=== PATIENT | female | born 1990 | race American Indian/Alaskan Native ===

== ENCOUNTER 2019-04-13 14:07 | Outpatient (CLI) | payer MEDICAID ==
[2019-04-13] MEDS ORDERED: LACTATED RINGERS 500 ML IV ONE (17:02)
[2019-04-13] MEDS ORDERED: VISTARIL PO ONE (17:03)
== END 2019-04-13 17:44 | disposition home or self-care (01) ==
LOC: TRG 14:07
PROVIDERS: ATTEND Obstetrics & Gynecology
DX: O47.02 False labor before 37 completed weeks of gestation, second trimester (principal); Z3A.26 26 weeks gestation of pregnancy
CPT/HCPCS: Q0177

== ENCOUNTER 2019-06-04 17:54 | Outpatient (CLI) | payer MEDICAID ==
[2019-06-04] MEDS ORDERED: LACTATED RINGERS 500 ML IV ONE (18:19)
[2019-06-04 19:03] LABS: Bacteria,Urine 1+ /HPF (Negative); Bilirubin,Urine NEG (Negative); Blood,Urine NEG (Negative); Color,Urine Yellow (Yellow); Protein,Urine <15 mg/dL mg/dL (Negative)
[2019-06-04 20:12] VITALS: BP 102/63
== END 2019-06-04 20:32 | disposition home or self-care (01) ==
LOC: TRG 17:54
PROVIDERS: ATTEND Obstetrics & Gynecology
DX: O26.893 Other specified pregnancy related conditions, third trimester (principal); R10.9 Unspecified abdominal pain; O47.03 False labor before 37 completed weeks of gestation, third trimester; Z3A.36 36 weeks gestation of pregnancy
CPT/HCPCS: 81001; J7120; 96360

== ENCOUNTER 2019-06-22 05:37 | Inpatient (IN) | payer MEDICAID ==
--- NOTE | 2019-06-21 13:29 | History and Physical Report ---
History of Present Illness Date of examination: 06/19/19 History of present illness: Patient admitted for repeat section. Patient informed the risks of the surgery include bleeding possibly bleeding heavy enough to require blood transfusion, infection possible damage to bowel bladder ureter. Patient understands that due to her previous surgery she is an increased risks of adjacent organ damage. Patient's questions answered. Patient understands and desires to proceed. Menstrual History Regularity: regular Menses every: 28 days Duration: 4 LMP: 09/30/2018 LMP reliability: unknown LMP character: normal test type: urine test Date: 11/11/2018 BC at conception: none Planned ? no Past History : 5 Term Births: 3 Premature Births: 0 Living Children: 3 Para: 1 Mult. Births: 0 Prev : 3 Aborta: 1 Elect. Ab: 1 Spont. Ab: 0 Ectopics: 0 # 1 Delivery date: 10/09/2009 Weeks Gestation: 10 Delivery type: EAB Comments: d&c # 2 Delivery date: 08/15/2010 Weeks Gestation: 39 labor: no Delivery type: Anesthesia type: spinal Delivery location: [facility] Sex: Male weight: 9-6 Name: José Manuel Comments: Scheduled "might be too big" # 3 Delivery date: 02/06/2013 Weeks Gestation: 39 Delivery type: Anesthesia type: spinal Delivery location: [facility] Infant Sex: Female weight: 7#9 # 4 Delivery date: 12/06/2015 Weeks Gestation: 39 Delivery type: Anesthesia type: spinal Delivery location: [facility] Sex: Female weight: 8#11 Past Medical History: Negative Past Medical History Past Surgical History: C/S X 3 D&C Past Medical History Surgery (Non-breastfeeding peer counselor): D&C Abnormal PAP: negative DELON Exposure: negative Infertility: negative Uterine Anomaly: negative Uterine Surgery (not C/S): negative Other Gynecologic Problems: negative Family Hx: Family History Breast Cancer Family History of Diabetes Family History of Hypertension No Family History of Cervical Cancer No Family History of Colon Cancer Family History of Ovarvian Cancer No Family History of DVT/PE on OCP Social Hx: Patient is single lives with children [employer] Denies etoh, drug, tobacco Infection History HIV Risk Eval: low risk Hepatitis B Risk Eval: low risk Personal hx. of genital herpes: yes Partner hx. of genital herpes: no Rash, Viral, or Febrile illness since last LMP? 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 Genetic History Congenital Heart Defect: Mom: no Dad: no Yoni Disease: Mom: no Dad: no Thalassemia Mom: no Dad: no Neural Tube Defect Mom: no Dad: no Down's Syndrome Mom: no Dad: no Keegan-Sachs Mom: no Dad: no Sickle Cell Disease/Trait Mom: no Dad: no Hemophilia Mom: no Dad: no Muscular Dystrophy Mom: no Dad: no Cystic Fibrosis Mom: no Dad: no [place] Chorea Mom: no Dad: no Mental Retardation Mom: no Dad: no Fragile X Mom: no Dad: no Other Genetic/Chromosomal Disorder Mom: no Dad: no Child w/other defect Mom: no Dad: no Enviromental Exposures Enviromental Exposures Reviewed Xray Exposure: no Medication, drug, or alcohol use since LMP: no Chemical/Other Exposure: no Exposure to Cat Liter: no Hx of Parvovirus (Fifth Disease): no Occupational Exposure to Children: none Current Allergies (reviewed today): No known allergies Past History Past Medical History: other (SEE HPI) Past Surgical History: section, D&C, other (SEE HPI) SEO MARKETING SPECIALIST History: other (SEE HPI) Family/Genetic History: other (SEE HPI) Social history: full code, other (SEE HPI) - Obstetrical History Expected Date of Delivery: 06/29/19 Actual Gestation: 39 Week(s) 1 Day(s) : 5 Para: 3 Hx # Term Pregnancies: 3 Number of Pregnancies: 0 Spontaneous Abortions: 0 Induced : 1 Number of Living Children: 3 Medications and Allergies Allergies Allergy/AdvReac Type Severity Reaction Status Date / Time Fish Containing Products Allergy Severe Anaphylaxis Verified 04/13/19 17:30 chocolate flavor Allergy Mild Hives Verified 04/13/19 17:31 Home Medications Medication Instructions Recorded Confirmed Last Taken Type Ferrous Sulfate [Feosol 325 MG tab] 325 mg PO BID #60 tablet 06/22/19 Unknown Rx Ibuprofen [Motrin 800 MG tab] 800 mg PO Q6H PRN #30 tablet 06/22/19 Unknown Rx oxyCODONE /ACETAMINOPHEN [Percocet 1 - 2 tab PO Q4H PRN #20 tablet 06/22/19 Unknown Rx 5/325 mg] Review of Systems Constitutional: other - Physical Exam Breasts: Positive: deferred Cardiovascular: Regular rate Lungs: Positive: Normal air movement Abdomen: Positive: normal appearance, normal bowel sounds Genitourinary (Female): Positive: normal external genitalia Uterus: Positive: enlarged Extremities: Positive: edema - Obstetrical FHR: auscultation normal Uterine Contraction Pattern: Absent Results Result Diagrams: 06/22/19 20:46 All other labs normal. Assessment and Plan - Patient Problems (1) Maternal care due to uterine scar from other previous surgery Current Visit: No Status: Acute Plan to address problem: Discuss the risks of the surgery including infection, bleeding possibly heavy enough to require a blood transfusion, possible damage to bowel, bladder or ureter. Patient understands her risks of adjacent organ damage is increased due to her previous surgery(ies) Her questions were answered. Patient understands and desires to proceed (2) Herpes, genital Current Visit: No Status: Chronic Qualifiers: Herpes simplex infection site: unspecified Qualified Code(s): A60.00 - Herpesviral infection of urogenital system, unspecified (3) 39 weeks gestation of Current Visit: No Status: Acute
[~2019-06-22 05:37] MED LIST: PEPCID IV ONE; PITOCin/NS 20 UNIT/1000ML DRIP 20 UNITS/1,000 ML BAG IV SCH
[2019-06-22] MEDS ORDERED: PEPCID IV ONE (06:53)
[2019-06-22] MEDS: LACTATED RINGERS 1,000 ML IV SCH ×2 (06:59→07:01)
[2019-06-22 07:00] LABS: Basophils # (Auto) 0.1 K/mm3 (0.0-0.1); Basophils % (Auto) 0.8 % (0.0-1.8); Eosinophils # (Auto) 0.2 K/mm3 (0.0-0.4); Eosinophils % (Auto) 3.1 % (0.0-4.3); Hematocrit 35.1 % (30.3-42.9); Hemoglobin 11.5 gm/dl (10.1-14.3); Lymphocytes # (Auto) 2.2 K/mm3 (1.2-5.4); Lymphocytes % (Auto) 29.7 % (13.4-35.0); Mean Corpuscular HGB Conc 33 % (30-34); Mean Corpuscular Volume 73 fl (79-97); Monocytes # (Auto) 0.6 K/mm3 (0.0-0.8); Platelet Count 311 K/mm3 (140-440); Red Blood Count 4.78 M/mm3 (3.65-5.03)
[2019-06-22] MEDS ORDERED: ANCEF/STERILE WATER 2 GM/20 ML 2 GM/20 ML SYRINGE IV NR (07:00)
[2019-06-22] MEDS ORDERED: REGLAN IV SCH (07:00)
[2019-06-22] MEDS ORDERED: BICITRA PO SCH (07:00)
[2019-06-22 07:02] LABS: Red Cell Distribution Width 24.5 % (13.2-15.2)
--- NOTE | 2019-06-22 07:06 | Anesthesia Consultation ---
Anesthesia Consult and Med Hx Date of service: 06/22/19 - Airway Anesthetic Teeth Evaluation: Good ROM Head & Neck: Adequate Mental/Hyoid Distance: Adequate Mallampati Class: Class I - Pulmonary Exam CTA: Yes - Cardiac Exam Cardiac Exam: RRR - Pre-Operative Health Status ASA Pre-Surgery Classification: ASA2 Proposed Anesthetic Plan: Spinal - Pulmonary Hx Asthma: No - Cardiovascular System Hx Hypertension: No - Central Nervous System Hx Seizures: No Hx Psychiatric Problems: No - Endocrine Hx Renal Disease: No Hx Hypothyroidism: No Hx Hyperthyroidism: No - Hematic Hx Anemia: Yes Hx Sickle Cell Disease: No - Other Systems Hx Alcohol Use: No
--- NOTE | 2019-06-22 07:08 | Anesthesia Day of Surgery ---
Anesthesia Day of Surgery - Day of Surgery Patient Examined: Yes Patient H&P Reviewed: Yes Patient is NPO: Yes
[2019-06-22] MEDS ORDERED: DEXMEDETOMIDINE IV ONE (07:20)
[2019-06-22] MEDS ORDERED: WATER FOR IRRIG STERILE IR ONE (07:54)
[2019-06-22] MEDS ORDERED: NACL 0.9% IR ONE (07:54)
[2019-06-22] MEDS ORDERED: ZOFRAN IV PRN ×2 (08:00→11:56)
[2019-06-22] MEDS ORDERED: NARCAN 0.4 MG/1 ML IV PRN ×2 (08:00→11:56)
[2019-06-22] MEDS ORDERED: PHENERGAN PR PRN (08:00)
[2019-06-22] MEDS ORDERED: fentaNYL-BUPIV 2 MCG/ML-0.125% 200 MCG/100 ML BAG EPIDURAL SCH (08:00)
[2019-06-22] MEDS ORDERED: SODIUM CHLORIDE FLUSH SYRINGE 10 ML IV PRN (08:00)
[2019-06-22] MEDS ORDERED: PHENERGAN PO PRN (08:00)
[2019-06-22] MEDS ORDERED: PHENYLEPHRINE/NS Syringe 1,000 MCG/10 ML IV ONE (08:08)
[2019-06-22] MEDS ORDERED: BENADRYL ONE (08:08)
[2019-06-22] MEDS ORDERED: TORADOL ONE (08:08)
[2019-06-22] MEDS ORDERED: DILAUDID ONE (08:28)
--- NOTE | 2019-06-22 08:59 | Operative Report ---
Operative Report Operative Report: Date of procedure: 06/22/2019 Pre-operative diagnosis: Intrauterine at 39 weeks with previous cristin an section 3 Post-operative diagnosis: Same plus pelvic adhesive disease Procedure name(s): Repeat low transverse first section Surgeon: Santo Cazares MD Interface Control Officer: Anesthesia: Spinal EBL: 700 mL Complications: None Findings: Patient with thick adhesions between the anterior abdominal wall and anterior uterus. Unable to exteriorize uterus. Female infant weight 8 lbs. 3 oz. Apgars 8 at 1 minute and 9 at 5 minutes Specimen(s): None Procedure: The patient was brought to the operating room. A spinal was placed without any complications. She was then placed in left lateral tilt. Prepped and draped in the usual sterile manner. After testing for adequate anesthesia level, a Pfannenstiel incision was made through her previous scar. This incision was taken down to the fascia. The fascia was then nicked in the midline. This incision was extended out laterally with Marie scissors. The fascia was then sharply and bluntly from the underlying rectus mu scles. The rectus muscles were bluntly and sharply through the scar. The peritoneum was then entered with the grain broker and market operator's fingers. This incision was spread vertically with care not to damage the bladder below. The bladder flap was then formed sharply and bluntly with Metzenbaum scissors. Bladder blade was placed. Jesus self-retaining retractor could not be placed due to the thick a dhesions to the anterior uterine wall. A transverse incision was made in lower uterine segment. This incision was extended laterally with the operators fingers. The amniotic sac was then entered bluntly with the grain broker and market operator's fingers. The infant was delivered from the vertex position. Bulb suction on the mother's abdomen. Cord was double clamped and cut. The was then passed to the nursery personnel who were in attendance. The above scores were given by the nursery personnel. The placenta was then bluntly removed. The uterus could not be externalized and wiped clean the remaining products. The uterine incision was closed in layers. The first incision was closed in a locking manner using 0 Vicryl. This was followed by imbricating stitch also with 0 Vicryl. This closure was hemostatic after additional [id number] sutures. The bladder flap was copiously irrigated and found to be hemostatic. The pelvis was copiously irrigated and found to be hemostatic. Hemoblast was placed along the uterine incision The retractors were removed. The rectus muscles were inspected and found to be hemostatic. The fascia was then closed in a running manner using 0 Vicryl. This incision was hemostatic irrigation Bovie. The skin was reapproximated with 4-0 Vicryl subcuticularly. The patient tolerated procedure well. Her urine was clear. The infant was admitted to the well baby nursery. The patient was accompanied to recovery room in good condition. Instrument count correct 3.
--- NOTE | 2019-06-22 09:18 | Post Anesthesia Evaluation ---
- Post Anesthesia Evaluation Patient Participated: Yes Airway Patent: Yes Stable Respiratory Function: Yes Nausea/Vomiting: No Temp > 96.8F: Yes Pain Manageable: Yes Adequeate Hydration: Yes Anesthesia Complications: No Block Receding Appropriately: Yes Patient on Ventilator: No
[2019-06-22] MEDS ORDERED: D5LR 1,000 ML IV SCH (11:56)
[2019-06-22] MEDS ORDERED: SODIUM CHLORIDE FLUSH SYRINGE 10 ML IV NR (11:56)
[2019-06-22] MEDS ORDERED: LANSINOH TP PRN (11:56)
[2019-06-22] MEDS ORDERED: NORCO 5/325 PO PRN (11:56)
[2019-06-22] MEDS ORDERED: MILK OF MAGNESIA PO PRN (11:56)
[2019-06-22] MEDS ORDERED: TUCKS PAD TP PRN (11:56)
[2019-06-22] MEDS ORDERED: PITOCin/NS 20 UNIT/1000ML DRIP 20 UNITS/1,000 ML BAG IV SCH (11:56)
[2019-06-22] MEDS: TORADOL IV SCH ×2 (12:59→18:42)
[2019-06-22] MEDS: FEOSOL PO SCH (12:59)
[2019-06-22] MEDS: ANCEF/NS 1 GM/50 ML 1 GM/50 ML BAG IV SCH ×2 (13:44→21:53)
[2019-06-22 21:15] LABS: Hematocrit 31.3 % (30.3-42.9); Hemoglobin 10.1 gm/dl (10.1-14.3)
[2019-06-23] MEDS: TORADOL IV SCH ×2 (00:38→06:39)
[2019-06-23] MEDS: MYLICON PO PRN ×2 (00:43→10:28)
[2019-06-23] MEDS: FEOSOL PO SCH (09:44)
--- NOTE | 2019-06-23 12:47 | Progress Note ---
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 Negative: vomiting Narrative: Postoperative day #1. Patient without nausea vomiting. Patient tolerating advancing diet well Patient without fever. Will ambulate in halls. We will continue routine postoperative care. is doing well. Will continue routine post operative care. Patient's postoperative hematocrit is 31.3% patient is breast-feeding and undecided on her control. is in the room with patient Objective Vital Signs - 12hr 06/23/19 06/23/19 06/23/19 01:08 06:39 08:51 Temperature 98.1 F Pulse Rate 80 Respiratory 18 18 18 Rate Blood Pressure 102/49 [Left] - General physical appearance well developed, well nourished - Respiratory normal expansion - Abdomen soft, tender (appropriately postop day 1), other (bandages clean and dry) - Neurologic normal coordination - Psychiatric oriented to time, oriented to person, oriented to place, speech is normal, memory intact - Labs 06/22/19 20:46
[2019-06-23] MEDS: IBUPROFEN PO PRN ×2 (14:50→21:27)
[2019-06-24 08:50] VITALS: BP 102/65
[2019-06-24] MEDS: IBUPROFEN PO PRN (09:42)
[2019-06-24] MEDS: FEOSOL PO SCH (09:42)
--- NOTE | 2019-06-24 10:53 | Progress Note ---
Assessment and Plan - Patient Problems (1) delivery delivered Current Visit: Yes Status: Acute Plan to address problem: -routine pp/post op care -d/c home this pm Subjective - Subjective Date of service: 06/24/19 Principal diagnosis: POD #2 s/p repeat c/s Interval history: Pt doing well and desires d/c home today. no c/o this am. Care of incision was d/w pt and questions were addressed and answered. Patient reports: appetite normal, voiding normally, pain well controlled, flatus, ambulating normally, no dizzy ambulation Mobile: doing well Objective - Vital Signs Latest vital signs: Vital Signs Temp Pulse Resp BP BP Pulse Ox 06/24/19 07:43 97.9 F 79 20 102/65 98 06/24/19 01:30 97.5 F L 77 20 96/58 97 06/23/19 16:15 98.0 F 73 14 105/71 97 Intake and Output 06/23/19 06/24/19 06/24/19 22:59 06:59 14:59 Intake Total 720 240 360 Balance 720 240 360 Intake: Oral 720 240 360 Other: Total, Intake Amount 240 240 360 # Voids Void 1 1 1 - Exam Cardiovascular: Present: Normal S1, Normal S2 Lungs: Present: Clear to auscultation, Normal air movement Abdomen: Present: normal appearance, soft, normal bowel sounds. Absent: distention, tenderness, guarding Uterus: Present: normal, firm, fundal height below umbilicus. Absent: bogginess, tenderness Extremities: Present: normal. Absent: tenderness, edema Deep Tendon Reflex Grade: Normal +2 Incision: Present: normal, intact, other (soiled steristrips and moisture noted but no active bleeding of the incision. no purlent drainage noted.)
--- NOTE | 2019-06-24 10:55 | Discharge Summary ---
Providers - Providers Date of Admission: 06/22/19 05:37 Date of discharge: 06/24/19 Attending physician: KARI AMOR 06/22/19 11:56 Consult to Meter Repairer Helper [CONS] Routine Reason For Exam: Primary care physician: KARI AMOR Hospitalization Reason for admission: section Delivery: Procedure: section, repeat low transverse Procedure details: see op note Incision: normal, dry, intact baby: female Hospital course: Pt underwent scheduled c/s that was not complicated. She has had routine post op and pp care that again has not been complicated and she desires d/c to home today. Condition at discharge: Good Disposition: DC-01 TO HOME OR SELFCARE - Discharge Diagnoses (1) delivery delivered Status: Acute Plan - Discharge Medications Prescriptions: Ferrous Sulfate [Feosol 325 MG tab] 325 mg PO BID #60 tablet Ibuprofen [Motrin 800 MG tab] 800 mg PO Q6H PRN #30 tablet PRN Reason: Pain oxyCODONE /ACETAMINOPHEN [Percocet 5/325 mg] 1 - 2 tab PO Q4H PRN #20 tablet PRN Reason: Pain, Moderate - Provider Discharge Summary Additional instructions: [] Smoking cessation referral if applicable(refer to patient education folder for contact #) [] Refer to [facility] Booklet Call your doctor immediately for: * Fever > 100.5 * Heavy vaginal bleeding ( >1 pad per hour) * Severe persistent headache * Shortness of breath * Reddened, hot, painful area to leg or breast * Drainage or odor from incision. * Keep incision clean and dry at all times and follow doctor's instructions regarding bathing/showering - Follow up plan Follow up: KARI AMOR MD [Primary Care Provider] - 7 Days
== END 2019-06-24 14:40 | disposition home or self-care (01) | DRG 765 ==
LOC: APU 05:37 → OB 11:05
PROVIDERS: ADMIT Obstetrics & Gynecology; ATTEND Obstetrics & Gynecology
PROC: 10D00Z1 Extraction of Products of Conception, Low, Open Approach (ICD-10-PCS; principal; 2019-06-22)
DX: O34.211 Maternal care for low transverse scar from previous cesarean delivery (principal); O98.32 Other infections with a predominantly sexual mode of transmission complicating childbirth; A60.00 Herpesviral infection of urogenital system, unspecified; N73.6 Female pelvic peritoneal adhesions (postinfective); O99.89 Other specified diseases and conditions complicating pregnancy, childbirth and the puerperium; Z3A.39 39 weeks gestation of pregnancy; Z37.0 Single live birth; Z80.3 Family history of malignant neoplasm of breast; Z80.41 Family history of malignant neoplasm of ovary; Z83.3 Family history of diabetes mellitus; Z82.49 Family history of ischemic heart disease and other diseases of the circulatory system; Z91.013 Allergy to seafood; Z91.018 Allergy to other foods
CPT/HCPCS: 36415; 85014; 85018; 85025; 86850; 86900; 86901; G0378; C1765; J0690; J1170; J1200; J1885; J2370; J2405; J2590; J2765; J3490; J7120; J7121

== ENCOUNTER 2019-10-29 19:23 | Emergency (ER) | payer SELFPAY ==
[2019-10-29 19:36] VITALS: BP 108/68
--- NOTE | 2019-10-29 20:12 | Emergency Department Report ---
- General Chief complaint: Extremity Injury, Upper Stated complaint: RT HAND SWOLLEN Time Seen by Provider: 10/29/19 20:03 Source: patient Mode of arrival: Ambulatory Limitations: No Limitations - History of Present Illness Initial comments: pt is a 29 yo female who presents to the ED with c/o right hand and erythema and edema that began today. she has a history of eczema and states that she has been frequently scratching. she states that she uses eucerin cream for her eczema. she denies any fever, chills, n/v/d. no PMHx no allergies to meds. LNMP: 1st week of feb - Related Data Previous Rx's Medication Instructions Recorded Last Taken Type Ferrous Sulfate [Feosol 325 MG tab] 325 mg PO BID #60 tablet 06/22/19 Unknown Rx Ibuprofen [Motrin 800 MG tab] 800 mg PO Q6H PRN #30 tablet 06/22/19 Unknown Rx oxyCODONE /ACETAMINOPHEN [Percocet 1 - 2 tab PO Q4H PRN #20 tablet 06/22/19 Unknown Rx 5/325 mg] Sulfamethoxazole/Trimethoprim 2 each PO BID 10 Days #40 tablet 10/29/19 Unknown Rx [Bactrim DS TAB] Triamcinolone 0.5% [Kenalog 0.5% 1 applic TP TID #1 tube 10/29/19 Unknown Rx CREAM] diphenhydrAMINE [Benadryl CAP] 50 mg PO Q8HR PRN #14 capsule 10/29/19 Unknown Rx Allergies Allergy/AdvReac Type Severity Reaction Status Date / Time Fish Containing Products Allergy Severe Anaphylaxis Verified 04/13/19 17:30 chocolate flavor Allergy Mild Hives Verified 04/13/19 17:31 cat dander Allergy Swelling Verified 10/29/19 19:35 dog dander Allergy Swelling Verified 10/29/19 19:35 Abscess Boil HPI - HPI Chief Complaint: Extremity Injury, Upper Stated Complaint: RT HAND SWOLLEN Time Seen by Provider: 10/29/19 20:03 Home Medications: Previous Rx's Medication Instructions Recorded Last Taken Type Ferrous Sulfate [Feosol 325 MG tab] 325 mg PO BID #60 tablet 06/22/19 Unknown Rx Ibuprofen [Motrin 800 MG tab] 800 mg PO Q6H PRN #30 tablet 06/22/19 Unknown Rx oxyCODONE /ACETAMINOPHEN [Percocet 1 - 2 tab PO Q4H PRN #20 tablet 06/22/19 Unknown Rx 5/325 mg] Sulfamethoxazole/Trimethoprim 2 each PO BID 10 Days #40 tablet 10/29/19 Unknown Rx [Bactrim DS TAB] Triamcinolone 0.5% [Kenalog 0.5% 1 applic TP TID #1 tube 10/29/19 Unknown Rx CREAM] diphenhydrAMINE [Benadryl CAP] 50 mg PO Q8HR PRN #14 capsule 10/29/19 Unknown Rx Allergies/Adverse Reactions: Allergies Allergy/AdvReac Type Severity Reaction Status Date / Time Fish Containing Products Allergy Severe Anaphylaxis Verified 04/13/19 17:30 chocolate flavor Allergy Mild Hives Verified 04/13/19 17:31 cat dander Allergy Swelling Verified 10/29/19 19:35 dog dander Allergy Swelling Verified 10/29/19 19:35 ED Review of Systems ROS: Stated complaint: RT HAND SWOLLEN Other details as noted in HPI Comment: All other systems reviewed and negative ED Past Medical Hx - Past Medical History Previous Medical History?: No Hx Hypertension: No Hx Diabetes: No Hx Deep Vein Thrombosis: No Hx Renal Disease: No Hx Sickle Cell Disease: No Hx Seizures: No Hx Asthma: No Hx HIV: No - Social History Smoking Status: Never Smoker Substance Use Type: None - Medications Home Medications: Home Medications Medication Instructions Recorded Confirmed Last Taken Type Ferrous Sulfate [Feosol 325 MG tab] 325 mg PO BID #60 tablet 06/22/19 Unknown Rx Ibuprofen [Motrin 800 MG tab] 800 mg PO Q6H PRN #30 tablet 06/22/19 Unknown Rx oxyCODONE /ACETAMINOPHEN [Percocet 1 - 2 tab PO Q4H PRN #20 tablet 06/22/19 Unknown Rx 5/325 mg] Sulfamethoxazole/Trimethoprim 2 each PO BID 10 Days #40 tablet 10/29/19 Unknown Rx [Bactrim DS TAB] Triamcinolone 0.5% [Kenalog 0.5% 1 applic TP TID #1 tube 10/29/19 Unknown Rx CREAM] diphenhydrAMINE [Benadryl CAP] 50 mg PO Q8HR PRN #14 capsule 10/29/19 Unknown Rx ED Physical Exam - General Limitations: No Limitations General appearance: alert, in no apparent distress - Head Head exam: Present: atraumatic, normocephalic - Eye Eye exam: Present: normal appearance - ENT ENT exam: Present: mucous membranes moist - Neurological Exam Neurological exam: Present: alert, oriented X3 - Psychiatric Psychiatric exam: Present: normal affect, normal mood - Skin Skin exam: Present: warm, dry - Expanded Skin Exam Expanded 1 - edema, erythema, increased warmth, no blisters, no necrosis, no drainage 2 - erythema, increased warmth present in the antecubital fosa with some spreading down the forearm, in the antecubital fossa there is dry skin present with small skin colored papules consistent with ezcema, no necrosis, no drainage, no blistering ED Course Vital Signs 10/29/19 10/29/19 19:34 20:03 Temperature 98.5 F 98.5 F Pulse Rate 100 H 87 Respiratory 18 18 Rate Blood Pressure 108/68 108/68 O2 Sat by Pulse 98 98 Oximetry ED Medical Decision Making - Lab Data Vital Signs 10/29/19 10/29/19 19:34 20:03 Temperature 98.5 F 98.5 F Pulse Rate 100 H 87 Respiratory 18 18 Rate Blood Pressure 108/68 108/68 O2 Sat by Pulse 98 98 Oximetry - Medical Decision Making pt is a 29 yo female who presents to the ED with c/o right hand and erythema and edema that began today. she has a history of eczema and states that she has been frequently scratching. she states that she uses eucerin cream for her eczema. she denies any fever, chills, n/v/d. no PMHx no allergies to meds. LNMP: 1st week of oct. examination consistent with eczema and cellulitis. used skin marker to glen the area. advised pt that if it begins to pass the marker then return immediately. vitals are normal. pt given prescription for bactrim. also given Benadryl for itching and triamcinolone just to use on the area of eczema. advised pt to please take medication as prescribed. please use ointment as prescribed. please follow up with a primary care doctor. you need to be reexamined in 3 days. if the redness crosses the line I have drawn on your arm return immediately. return to the emergency room for any new or worsening symptoms. avoid scratching. may take benadryl as needed for itching, can cause drowsiness, do not drive or operate heavy machinery while taking medication. Critical care attestation.: If time is entered above; I have spent that time in minutes in the direct care of this critically ill patient, excluding procedure time. ED Disposition Clinical Impression: Acute eczema Cellulitis Qualifiers: Site of cellulitis: extremity Site of cellulitis of extremity: upper extremity Laterality: right Qualified Code(s): L03.113 - Cellulitis of right upper limb Disposition: - TO HOME OR SELFCARE Is pt being admited?: No Does the pt Need Aspirin: No Condition: Stable Instructions: Cellulitis (ED) Additional Instructions: please take medication as prescribed. please use ointment as prescribed. please follow up with a primary care doctor. you need to be reexamined in 3 days. if the redness crosses the line I have drawn on your arm return immediately. return to the emergency room for any new or worsening symptoms. avoid scratching. may take benadryl as needed for itching, can cause drowsiness, do not drive or operate heavy machinery while taking medication. Prescriptions: Sulfamethoxazole/Trimethoprim [Bactrim DS TAB] 2 each PO BID 10 Days #40 tablet diphenhydrAMINE [Benadryl CAP] 50 mg PO Q8HR PRN #14 capsule PRN Reason: Itching Triamcinolone 0.5% [Kenalog 0.5% CREAM] 1 applic TP TID #1 tube Referrals: ZACH NASSAR MD [Staff Physician] - 2-3 Days [facility] [Outside] - 2-3 Days [facility] [Outside] - 2-3 Days Time of Disposition: 20:13 Print Language: L[place]
== END 2019-10-29 20:38 | disposition home or self-care (01) ==
LOC: ED 19:23
DX: L03.113 Cellulitis of right upper limb (principal); L30.9 Dermatitis, unspecified; Z91.013 Allergy to seafood; Z91.048 Other nonmedicinal substance allergy status; Z91.018 Allergy to other foods; Z79.899 Other long term (current) drug therapy
CPT/HCPCS: 99282